=== PATIENT | male | born 1930 | race Caucasian/White ===

== ENCOUNTER 2017-10-14 11:20 | Inpatient (IN) | payer OTHER ==
[~2017-10-14] VITALS: Ht 167.6 cm; Wt 96.2 kg
--- NOTE | 2017-10-14 11:43 | ED GENERAL ADULT ---
History of Present Illness General Chief Complaint: Chest Pain Stated Complaint: SOB; CHEST PRESSURE Source: patient Exam Limitations: no limitations Allergies Coded Allergies: No Known Allergies (10/14/17) Reconcile Medications Aspirin (Ecotrin*) 81 MG TABLET.DR 1 TAB PO PRN HEART/BLOOD (Reported) Ezetimibe (Zetia) 10 MG TABLET 1 TAB PO DAILY CHOLESTEROL (Reported) Lisinopril 10 MG TABLET 1 TAB PO DAILY BP (Reported) Multivitamin (Daily Value) 1 EACH TABLET 1 TAB PO PRN SUPPLEMENT (Reported) Tamsulosin HCl 0.4 MG CAP.ER.24H 1 CAP PO QHS PROSTATE (Reported) Triage Note: 87M REPORTS HACKING COUGH SINCE JULY, 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 REPORTS SOB AND PEREA, O2 SAT 91 AFTER AMBULATION AND 94% AT REST ON ROOM AIR. REPORTS DISCOMFORT WITH COUGHING BUT NO CP/PALPITATIONS AT BASELINE. AFEBRILE. DENIES BLE EDEMA/SWELLING. Triage Nurses Notes Reviewed? yes Onset: Gradual Duration: 3 months Timing: no prior history Injury Environment: home Severity: moderate Severity Numbers: 6 No Modifying Factors: none HPI: Patient is an 87-year-old male with history of hypertension, TIA remotely presenting to the emergency Department chief complaint of increasing shortness of breath with exertion spangle half in the past 3 months. Patient also reporting that he has had dry cough for the past 2-3 months. Patient reports a sinus primary care physician and they ordered a chest x-ray which was negative. 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 Denies any current chest pain but does report that sometimes he gets pressure over his chest. Exertion increases shortness of breath, patient needs to stop and rest for several minutes to help with symptoms. No sick contacts or recent travel. No fevers or chills. Patient does take lisinopril daily for blood pressure. He was never told that this may cause cough. (Evens RICHARDSON,Viola) Vital Signs & Intake/Output Vital Signs & Intake/Output Vital Signs Date Time Temp Pulse Resp B/P B/P Pulse O2 O2 Flow FiO2 Mean Ox Delivery Rate 10/14 1458 98.1 82 22 145/87 96 Room Air 10/14 1436 98.1 85 22 163/83 94 Nasal 2.0L Cannula 10/14 1314 98.0 76 18 155/76 92 Room Air 10/14 1152 96 Room Air 10/14 1127 98.0 102 22 160/92 94 Room Air (Destiny GIBBS,Harpreet Warren) Past History Travel History Traveled to [place] past 21 day No Medical History Any Pertinent Medical History? see below for history Neurological: TIA EENT: NONE Cardiovascular: CAROTID ARTERY OPERATION Respiratory: NONE Gastrointestinal: NONE Hepatic: NONE Renal: NONE Musculoskeletal: NONE Psychiatric: anxiety Endocrine: NONE Surgical History Surgical History: non-contributory Psychosocial History What is your primary language Ecuadorean Tobacco Use: Never used Family History Hx Contributory? No (Viola Rodas) Review of Systems Review of Systems Constitutional: Reports: no symptoms. Comments Review of systems: See HPI, All other systems negative. Constitutional, no chills fever or weight loss HEENT: No visual changes no sore throat no congestion Cardiovascular: No palpitation , orthopnea or ankle swelling Skin, no jaundice no rashes Respiratory: No sputum or hemoptysis GI: No nausea no vomiting : No dysuria No hematuria Muscle skeletal: no back pain, no neck pain, Neurologic: No numbness no confusion no headache Psych: No stress anxiety or depression,. Heme/endocrine: No bruising no bleeding no polyuria or polydipsia Immunology: No splenectomy or history of AIDS (Viola Rodas) Physical Exam Physical Exam General Appearance: well developed/nourished, alert, awake, mild distress Comments: Well-developed well-nourished person in mild respiratory distress HEENT: Pupils equally round and reactive to light and accommodation. Nose is atraumatic. External auditory canal and Tympanic membranes clear. Pharynx normal. No swelling or edema. Neck: Normal inspection Back: Nontender Cardiovascular: Regular rate and rhythms no murmurs rubs or gallops, normal JVP Respiratory: Chest nontender. Mild to moderate respiratory distress.breath sounds slightly diminished to auscultation bilaterally Abdomen: Soft, nontender nondistended, no appreciable organomegaly. Normal bowel sounds. No ascites, no rebound or guarding. Small reducible umbilical hernia present. Rectal: Patient refused guaiac exam. Extremity: No edema, no calf tenderness to palpation, normal and equal pulses. Neuro: Alert oriented x3 Skin: No appreciable rash on exposed skin, skin is warm and dry. Psych: Mood and affect is normal, memory and judgment is normal. Core Measures ACS in differential dx? Yes CVA/TIA Diagnosis: No (Viola Rodas) Core Measures Sepsis Present: No Sepsis Focused Exam Completed? No (Destiny GIBBS,Harpreet Warren) Progress Differential Diagnoses I considered the following diagnoses in my evaluation of the patient: ACS, pulmonary embolus, medication reaction, CHF, asthma exacerbation, bronchitis Diagnostic Imaging: Viewed by Me: Radiology Read, CT Scan. Discussed w/RAD: Radiology Read, CT Scan. Initial ED EKG: NSR (sinus rhythm 96 bpm) Comments: 10/14/2017 3:10:[address] Robison regarding patient's pulmonary embolism finding on CAT scan. We will start IV heparin. He'll consult on patient tomorrow. Patient to be admitted to telemetry. Since patient is stable and vitals are stable patient does not need ICU. We will continue trend labs, serial EKGs. Telemetry monitoring. (Viola Rodas) Plan of Care: Orders Procedure Date/time Status Regular Diet 10/14 D Active Patient Data 10/14 1505 Active Misc Message 10/14 1458 Active ED Holding Orders 10/14 1458 Active Admit to inpatient 10/14 1458 Active Vital Signs 10/14 1458 Active Code Status 10/14 1458 Active Telemetry/Flavor Maker 10/14 1142 Active TROPONIN LEVEL 10/14 1142 Complete PARTIAL THROMBOPLASTIN TIME 10/14 1142 Complete PROTHROMBIN TIME 10/14 1142 Complete LACTIC ACID 10/14 1142 Complete D-DIMER 10/14 1142 Complete COMPREHENSIVE METABOLIC PANEL 10/14 1142 Complete CBC WITHOUT DIFFERENTIAL 10/14 1142 Complete B-TYPE NATRIURETIC PEP (BNP) 10/14 1142 Complete EKG 10/14 1128 Active Current Medications Sig/Alfa Start time Last Medication Dose Stop Time Status Admin Heparin Sodium 25,000 UNIT Q24H 10/14 1500 AC (Porcine) 10/15 1459 (Heparin) Sodium Chloride 500 ML Laboratory Tests 10/14/17 1442: Lactic Acid Cancelled 10/14/17 1215: Anion Gap 11, Estimated GFR > 60, BUN/Creatinine Ratio 20.0, Glucose 85, Lactic Acid 1.5, Calcium 9.7, Total Bilirubin 0.6, AST 19, ALT 24, Alkaline Phosphatase 69, Troponin I 0.13 *H, Fgb-E-Loissbwidid Pept 277 H, Total Protein 6.8, Albumin 4.0, Globulin 2.8, Albumin/Globulin Ratio 1.4, PT 12.5, INR 1.15, APTT 36, D-Dimer High Sensitivty 886 H, CBC w Diff NO MAN DIFF REQ, RBC 4.83, MCV 89.9, MCH 29.7, MCHC 33.1, RDW 14.2, MPV 8.0, Gran % 70.3, Lymphocytes % 18.3 L , Monocytes % 8.3, Eosinophils % 2.7, Basophils % 0.4, Absolute Granulocytes 6.7 H, Absolute Lymphocytes 1.7, Absolute Monocytes 0.8 H, Absolute Eosinophils 0.3, Absolute Basophils 0 Patient resting comfortably, oxygen saturation remains between 93 and 96% on 2 L nasal cannula. Patient reports little relief after breathing treatment. Patient family informed of CT findings. It is explained that patient will need to be admitted to start anticoagulation. Discharged at this time is medically harmful. Patient compliant with the need for admission. (Viola Rodas) Comments: 10/14/2017 2:38:36 PM Viola and myself have updated [place] on his test results. 10/14/2017 2:50:59 PM I discussed this patient's case with Dr. Cruz feels the patient can be admitted to telemetry. We will notify Dr. Robison. (Destiny GIBBS,Harpreet Warren) Departure Departure Time of Disposition: 1510 Condition: Stable Departure Forms: Customer Survey General Discharge Information (Viola Rodas) Departure Disposition: STILL A PATIENT Clinical Impression Primary Impression: Bilateral pulmonary embolism Secondary Impressions: Elevated troponin Admission Note Spoke With: Yoni Cruz MD Documentation of Exam: Documentation of any treatments & extenuating circumstances including Concerns Regarding Discharge (functional status, medication knowledge or non-compliance, living conditions, etc.) that warrant an admission rather than observation: Patient presents for evaluation of shortness of breath over the past few months. Emergency department evaluation reveals bilateral pulmonary emboli and an elevated troponin level. This places the patient at very high risk of respiratory failure, cardiac failure, worsening hypoxia, chest pain and mortality. I do not feel he can safely be treated as an outpatient under the circumstances. He now requires hospitalization for anticoagulation, continuous cardiac monitoring, serial troponin determinations and cardiology consultation ( given the elevated troponin) and pulmonary consultation (given the pulmonary emboli). Vital signs including pulse oximetry should be monitored and patient's oxygen supplemented as needed. In addition the underlying cause for this patient's pulmonary emboli should be investigated including blood dyscrasia, autoimmune disease and occult malignancy. This patient will require a multiple day hospitalization. PA/REMOTE MEDICAL CODER Co-Sign Statement Statement: ED Attending supervision documentation- [X] I saw and evaluated the patient. I have also reviewed all the pertinent lab results and diagnostic results. I agree with the findings and the plan of care as documented in the PA's/REMOTE MEDICAL CODER's documentation. Patient presents for evaluation of persistent dyspnea over the past 3 or so months. Physical examination reveals clear lung sounds bilaterally [] I have reviewed the ED Record and agree with the PA's/REMOTE MEDICAL CODER's documentation. [] Additions or exceptions (if any) to the PAs/REMOTE MEDICAL CODER's note and plan are summarized below: [] (Destiny GIBBS,Harpreet Warren) Critical Care Note Critical Care Note Critical Care Time: 30-74 min (Harpreet Dixon MD)
--- NOTE | 2017-10-14 12:32 | RADIOLOGY REPORT ---
EXAMINATION: XR PORTABLE CHEST CLINICAL INFORMATION: 87-year-old man with shortness of breath. COMPARISON: None TECHNIQUE: Portable frontal view of the chest was obtained. FINDINGS: Lung volumes are somewhat low. No focal consolidation or overt edema is appreciated. Heart size is at the upper range of normal. There are no pleural effusions. IMPRESSION: No radiographic evidence of an acute cardiopulmonary process. Low lung volumes.
[2017-10-14 12:35] LABS: ABSOLUTE BASOPHIL COUNT 0 /CUMM (0.0-0.2); ABSOLUTE EOSINOPHIL COUNT 0.3 /CUMM (0.0-0.7); ABSOLUTE GRANULOCYTE CT 6.7 /CUMM (1.4-6.5); ABSOLUTE LYMPH COUNT 1.7 /CUMM (1.2-3.4); ABSOLUTE MONOCYTE COUNT 0.8 /CUMM (0.10-0.60); BASOPHIL % 0.4 % (0.0-2.0); EOSINOPHIL % 2.7 % (0-5); GRANULOCYTE % 70.3 % (42.2-75.2); HEMATOCRIT 43.5 % (42-52); MEAN CORPUSCULAR HGB 29.7 PG (27.0-31.0); MEAN CORPUSCULAR HGB CONC 33.1 G/DL (33.0-37.0); MEAN CORPUSCULAR VOLUME 89.9 FL (80.0-94.0); PLATELET COUNT 325 /CUMM (130-400); RBC DISTRIBUTION WIDTH 14.2 % (11.5-14.5); RED BLOOD CELL CT 4.83 /CUMM (4.70-6.10); WHITE BLOOD CELL COUNT 9.5 /CUMM (4.8-10.8)
[2017-10-14] MEDS ORDERED: ZETIA10 M1 PO (12:35)
[2017-10-14] MEDS ORDERED: ASPIRIN EC81 M1 PO (12:35)
[2017-10-14] MEDS ORDERED: LISINOPRIL10 M1 PO (12:36)
[2017-10-14] MEDS ORDERED: TAMSULOSIN HCL0.4 M1 PO (12:36)
[2017-10-14 12:38] LABS: PT 12.5 SEC (9.4-12.5); PTT 36 SEC (25-37)
[2017-10-14] MEDS ORDERED: DAILY VALUE1 EACH PO (12:39)
--- NOTE | 2017-10-14 15:01 | CT SCAN REPORT ---
EXAMINATION: CT ANGIOGRAM OF THE CHEST WITH AND WITHOUT CONTRAST (CT PULMONARY ANGIOGRAM FOR PE) CLINICAL INFORMATION: Shortness of breath. COMPARISON: Chest radiography earlier today. TECHNIQUE: Prior to contrast administration, noncontrast localization images were obtained. Subsequently, multidetector volumetric imaging was performed from the thoracic inlet to below the diaphragms following the administration of 95 mL Optiray 350 intravenous contrast. No contrast reaction reported. Sagittal, coronal, and MIP oblique sagittal reformatted images were obtained on the CT workstation, uploaded to PACS, and reviewed. Total exam dose-length product 496 mGy-cm. FINDINGS: QUALITY OF STUDY/CONTRAST BOLUS: Satisfactory. PULMONARY ARTERIES: There are bilateral pulmonary emboli involving each lobe (moderate clot burden). There is borderline ectasia of the main pulmonary artery. THORACIC AORTA: No aneurysm or dissection. Scattered atherosclerotic calcification. LUNG: There is mild patchy groundglass opacification in the right lung apex as well as the lingula. There are a few scattered subcentimeter pulmonary nodules measuring up to 0.8 x 0.5 x 0.3 cm in the right upper lobe, axial image 148/426 (series 2). PLEURA: No pleural effusion or pneumothorax. MEDIASTINUM: The trachea and central airways are patent. Normal heart size. Multifocal coronary artery calcification. No evidence of septal bowing or right heart strain. Subcentimeter mediastinal lymph nodes without bulky adenopathy. CHEST WALL/AXILLA: No axillary or internal mammary lymphadenopathy. OSSEOUS STRUCTURES: No acute or suspicious osseous abnormality. Mild degenerative changes of the spine. UPPER ABDOMEN: No acute intra-abdominal abnormalities. Partially visualized left renal cyst. Atrophic changes of the pancreas. IMPRESSION: 1. Diffuse bilateral pulmonary emboli (moderate clot burden). 2. A few nonspecific patchy groundglass opacities bilaterally. Subcentimeter pulmonary nodules measuring up to 0.5 cm. According to the UPDATED 2017 Fleischner Society recommendations, the advised follow-up imaging for solid nodules < 6 mm is: LOW RISK PATIENT: No routine follow-up. HIGH RISK PATIENT: Optional CT at 12 months. VTE: Positive. This critical result was discussed with Dr. Horner at 2:30 PM on 10/14/2017 and it was ascertained that the content and urgency of the report was understood at the time of direct communication.
--- NOTE | 2017-10-14 15:12 | History & Physical ---
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 at bedside. Patient reports he went to [employer] with his this morning and found himself SOB after attempting to walk through the parking lot to the car. Patient reports he has been short of breath since July but has been progressively getting worse but initially attributed it to cold weather. He reports he has a 2 story home and cannot go up a flight of steps without SOB. He is active around the house and perform his ADLs. His reports they walk around [facility] for exercise. He reports a poor water intake. He drinks 3 12-ounces of green tea amd/or ice tea a day. He also reports back in July when he was initially SOB it was accompanied by a hacking cough with yellowish sputum production. He had his influenza vaccination May 2017. He reports intermittent hemorrhoids and constipation. He had a colonoscopy 5 years ago that reported a few benign polyps. 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 He reports weight gain. He denies history of DVT/PE, smoking history, CP, palpitations, orthopnea, sputum production, nausea, vomiting, long distance travel, hematuria, hemoptysis, melena, hematochezia or urinary symptoms. He reports colon cancer in his mother, in her 80s. His PCP is Dr. Blair. Allergies/Medications Allergies: Coded Allergies: No Known Allergies (10/14/17) Home Med list Aspirin (Ecotrin*) 81 MG TABLET. 1 TAB PO PRN HEART/BLOOD (Reported) Ezetimibe (Zetia) 10 MG TABLET 1 TAB PO DAILY CHOLESTEROL (Reported) Lisinopril 10 MG TABLET 1 TAB PO DAILY BP (Reported) Multivitamin (Daily Value) 1 EACH TABLET 1 TAB PO PRN SUPPLEMENT (Reported) Tamsulosin HCl 0.4 MG CAP.ER.24H 1 CAP PO QHS PROSTATE (Reported) Past History Travel History Traveled to [place] past 21 day No Medical History Neurological: TIA EENT: NONE Cardiovascular: CAROTID ARTERY OPERATION Respiratory: NONE Gastrointestinal: NONE Hepatic: NONE Renal: NONE Musculoskeletal: NONE Psychiatric: anxiety Endocrine: NONE Surgical History Surgical History: non-contributory Review of Systems Review of Systems Constitutional: Reports: see HPI. Exam & Diagnostic Data Last 24 Hrs of Vital Signs/I&O Vital Signs Date Time Temp Pulse Resp B/P B/P Pulse O2 O2 Flow FiO2 Mean Ox Delivery Rate 10/14 1458 98.1 82 22 145/87 96 Room Air 10/14 1436 98.1 85 22 163/83 94 Nasal 2.0L Cannula 10/14 1314 98.0 76 18 155/76 92 Room Air 10/14 1152 96 Room Air 10/14 1127 98.0 102 22 160/92 94 Room Air Intake & Output 10/14 1600 10/14 0800 10/14 0000 Intake Total Output Total Balance Patient 210 lb Weight Physical Exam General Appearance Alert, Oriented X3, Cooperative, on 2.5LNC Cardiovascular Regular Rate, Normal S1, Normal S2, No Murmurs Lungs Clear to Auscultation, Normal Air Movement Abdomen Normal Bowel Sounds, Soft, No Tenderness Extremities No Edema, Normal Pulses, No Tenderness/Swelling Rectal Guiac Negative Last 24 Hrs of Labs/Shawn: Laboratory Tests 10/14/17 1442: Lactic Acid Cancelled 10/14/17 1215: Anion Gap 11, Estimated GFR > 60, BUN/Creatinine Ratio 20.0, Glucose 85, Lactic Acid 1.5, Calcium 9.7, Total Bilirubin 0.6, AST 19, ALT 24, Alkaline Phosphatase 69, Troponin I 0.13 *H, Jgr-H-Spollrbeety Pept 277 H, Total Protein 6.8, Albumin 4.0, Globulin 2.8, Albumin/Globulin Ratio 1.4, PT 12.5, INR 1.15, APTT 36, D-Dimer High Sensitivty 886 H, CBC w Diff NO MAN DIFF REQ, RBC 4.83, MCV 89.9, MCH 29.7, MCHC 33.1, RDW 14.2, MPV 8.0, Gran % 70.3, Lymphocytes % 18.3 L , Monocytes % 8.3, Eosinophils % 2.7, Basophils % 0.4, Absolute Granulocytes 6.7 H, Absolute Lymphocytes 1.7, Absolute Monocytes 0.8 H, Absolute Eosinophils 0.3, Absolute Basophils 0 Diagnostic Data EKG Results NS, Q3T3 HR 96 QTc 430 CXR Results FINDINGS: Lung volumes are somewhat low. No focal consolidation or overt edema is appreciated. Heart size is at the upper range of normal. There are no pleural effusions. IMPRESSION: No radiographic evidence of an acute cardiopulmonary process. Low lung volumes. Other Results CTA CHEST-PULMONARY EMBOLISM IMPRESSION: 1. Diffuse bilateral pulmonary emboli (moderate clot burden). 2. A few nonspecific patchy groundglass opacities bilaterally. Subcentimeter pulmonary nodules measuring up to 0.5 cm. According to the UPDATED 2017 Fleischner Society recommendations, the advised follow-up imaging for solid nodules < 6 mm is: LOW RISK PATIENT: No routine follow-up. HIGH RISK PATIENT: Optional CT at 12 months. VTE: Positive. Assessment/Plan Assessment: Mr. Vick is a 87 yo m with a PMH hypertension, HLD, TIA, anxiety who presents to the ED with progressively worsened shortness of breath Acute pulmonary emboli CTA showed diffuse bilateral pulmonary emboli. D-dimer 886. Troponin is mildly elevated 0.13. It is unclear why he developed VTE. His PESI -Class IV, High Risk: 4.0-11.4% with a 30-day mortality. His recent colonoscopy was benign, no smoking history, no recent surgeries, no immobility. * Start IV heparin * Cardiology consult-[place] * Serial troponins and ECG to r/o ACS * ECHO to r/o SHD and/or RWMA * TSH/free T4 * Abdominal US to investigate for malignancy * Continue home medications: ASA, Ezetimibe, lisinopril, tamsulosin Elevated troponins 2/2 Type II myocardial infarction DVT prophylaxis: IV heparin Code: FULL As Ranked By This Provider Problem List: 1. Bilateral pulmonary embolism 2. Elevated troponin Core Measures/Misc (04/29) Acute Coronary Syndrome ACS Diagnosis: No Congestive Heart Failure Congestive Heart Failure Diagnosis No Cerebrovascular Accident CVA/TIA Diagnosis: No VTE (View Protocol) VTE Risk Factors Age>40 No Mechanical VTE Prophylaxis d/t N/A MechProphylax Ordered No VTE Pharm Prophylaxis d/t NA PharmProphylax ordered Sepsis (View protocol) Sepsis Present: No Chani Medina MD 10/14/17 1526: Resident Review Statement Resident Statement: examined this patient, discussed with internet ecommerce specialist, agreed with internet ecommerce specialist, discussed with family Other Findings: Patient is an 87-year-old male presented with chief complaints of sudden onset of shortness of breath. Past medical history-hypertension, hyperlipidemia, TIA(1998), noncompliant with aspirin, history of left-sided carotid endarterectomy(2000), history of spinal stenosis status post surgery(2012), anxiety, carpal tunnel syndrome, left-sided intention tremor. According to the patient he was having gradually progressive shortness of breath especially on exertion since last 3 months. It was associated with dry cough, and weight gain. he denies any fever, chills, nausea, vomiting. He had episodes of sudden onset of catching his breath after he goes up and down the stairs.It lasted for only a couple of minutes and subsided by itself.He did not try any medication for it.In the morning today when he went to the [employer], he had an episode of sudden onset of shortness of breath, which lasted for a couple of minutes. The nurses over there checked him and advised [facility]. He is moderately active at home, can do his daily activities by himself, denies for smoking, orthopnea, PND, blood in the stool, bleeding from any site of the body, sputum and family history of clots. He had family history of colon cancer in the mother, and that is why he underwent through screening colonoscopy and multiple polyps were removed but denies for any reported malignancy. His last colonoscopy was 5 years ago. 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 Underwent regular colonoscopy last one was done 5 years ago, and couple of benign polyps were removed. ED course he was having SPO2 91% after ambulation and 94% on room air at rest. Vital signs -temperature 98.0, pulse 102, respiratory rate 22, blood pressure 160/92, SPO2 94% on room air, nonproductive liters of nasal cannula with SPO2 of 94%. Blood workup -WBC 9.5, hemoglobin 14.4, hematocrit 43.5, platelet count 325, sodium 142, potassium 5.1, chloride 108, anion gap 11, BUN 20, creatinine 1.0, glucose 85, lactic acid 1.5, calcium 9.7, total bilirubin 0.6, AST 19, ALT 24, alkaline phosphatase 69, troponins are 0.13, proBNP 277, albumin 4.0, PT/INR 12 point 5/1.15, d-dimer 886, EKG - NSR, HR -96,Qs in lead III Chest x-ray -No radiographic evidence of an acute cardiopulmonary process. Low lung volumes. CTA - 1. Diffuse bilateral pulmonary emboli (moderate clot burden). 2. A few nonspecific patchy groundglass opacities bilaterally. Subcentimeter pulmonary nodules measuring up to 0.5 cm. According to the UPDATED 2017 Fleischner Society recommendations, the advised follow-up imaging for solid nodules < 6 mm is: LOW RISK PATIENT: No routine follow-up. HIGH RISK PATIENT: Optional CT at 12 months. He was given oxygen inhalation, nebulization with DuoNeb, started on IV heparin drip after discussing with energy efficient site manager. Assessment and plan - Patient is a 87-year-old male with coronary risk factors including hypertension, hyperlipidemia history of TIA presented with chief complaints of gradually progressive shortness of breath. On examination chest was clear, no any evidence of bilateral lower extremity edema. chest x-ray did not show any evidence of, lung involvement. Blood workup did showed positive d-dimer 886 and positive troponins.CTA chest did show pulmonary embolism. We will admit the patient to telemetry floor and treat for pulmonary embolism.His stool for occult blood is negative.We will continue heparin drip.We will obtain cardiology consult and do echo to see any evidence of right heart strain.He may need repeat colonoscopy, a CT abdomen and pelvis to rule out any evidence of cancer. Bilateral PE - PESI -Class IV, High Risk: 4.0-11.4% 30-day mortality in this group. * We will admit the patient to the telemetry floor. * Serial troponins and EKG * We will obtain echocardiogram to know the right heart strain * We'll continue heparin drip. * We will continue tablet aspirin and statins * We will follow-up the lipid profile * We will obtain cardiology consult. * Evaluate him for malignancy as an outpatient * trc/neb Chronic medical condition, hypertension, hyperlipidemia. * We'll continue his antihypertensive and antihyperlipidemic medication as before. CODE STATUS-full code. DVT prophylaxis-heparin drip. Diet -heart healthy diet Anthony GIBBS,Yoni 10/14/17 1926: Attending MD Review Statement Attending Statement Attending MD Statement: examined this patient, discuss w/resident/PA/DISTRIBUTION SPEC, agreed w/resident/PA/DISTRIBUTION SPEC, reviewed EMR data (avail) Attending Assessment/Plan: 87M PMH HTN, HLD, TIA (1998), left CEA (2000), chronic left intention tremor with several week history of fatigue and mild shortness of breath, presented today with acutely worsening symptoms, dyspneic at rest, subjective fever, found to have elevated d-dimer, with CTA showing bilateral acute pulmonary embolism. 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 EKG NSR no acute, troponin 0.44. 1. Acute bilateral pulmonary embolism 2. Type 2 myocardial infarction Plan - Admit to telemetry - Serial troponin and EKG - Echocardiogram - Cardiology consult - Heparin drip - Continue home medications
[2017-10-14 17:16] VITALS: BP 140/80
--- NOTE | 2017-10-14 19:29 | Admission Certification ---
Admission Certification Certification Statement - As attending physician, I certify that at the time of - admission, based on clinical presentation, severity of - symptoms, need for further diagnostic testing and - therapeutic interventions, and risk of adverse outcomes - without in-hospital treatment, in my clinical assessment, - this patient requires an acute hospital stay for a minimum - of two nights or longer. I have also considered psychsocial - factors such as support system, advanced age, financial - issues, cognitive issues, and failed out-patient treatments, - past re-admission history, safety of patient, and lack of - compliance as applicable. Specific rationale supporting this admission is: bilateral acute pulmonary embolism with elevated troponin
[2017-10-14 21:58] VITALS: BP 144/86
[2017-10-14 22:28] LABS: PTT > 120 SEC (25-37)
[2017-10-15 06:11] LABS: PTT 59 SEC (25-37)
[2017-10-15 06:30] VITALS: BP 136/74
--- NOTE | 2017-10-15 07:31 | PN- Housestaff ---
Dara Delgado 10/15/17 0731: Subjective Follow-up For: Bilateral PE Tele-Events Since Last Visit: NS 20-27 Subjective: No complaints or acute events overnight Review of Systems Constitutional: Reports: see HPI. Objective Last 24 Hrs of Vital Signs/I&O Vital Signs Date Time Temp Pulse Resp B/P B/P Pulse O2 O2 Flow FiO2 Mean Ox Delivery Rate 10/15 0928 93 104/60 10/15 0928 93 104/60 10/15 0800 Nasal 2.0L Cannula 10/15 0630 98.5 62 20 136/74 95 03/04 2219 Nasal 2.0L Cannula 10/14 2205 Nasal 2.0L Cannula 10/14 2158 97.9 74 22 144/86 92 / 2157 77 144/86 / 1716 97.7 86 24 140/80 92 / 1700 93 Nasal 2.0L Cannula 10/14 1631 82 145/87 / 1458 98.1 82 22 145/87 96 Room Air 10/14 1436 98.1 85 22 163/83 94 Nasal 2.0L Cannula 10/14 1410 95 Nasal 2.5L Cannula Intake & Output 10/15 1600 10/15 0800 03/ 0000 Intake Total 130 Output Total Balance 130 Intake, IV 130 Number 1 Bowel Movements Patient 211 lb Weight Weight Bed scale Measurement Method Physical Exam General Appearance: Alert, Oriented X3, Cooperative, on 2LNC Cardiovascular: Regular Rate, Normal S1, Normal S2, No Murmurs Lungs: Clear to Auscultation, Normal Air Movement Abdomen: Normal Bowel Sounds, Soft, No Tenderness, large abdominal girth Extremities: No Edema Current Medications: Current Medications Sig/Alfa Start time Last Medication Dose Route Stop Time Status Admin Albuterol Sulfate 3 ML ONCE ONE 10/14 1345 DC 10/14 INH 10/14 1346 1410 Aspirin 0 .STK-MED ONE 10/14 1632 DC PO Aspirin Buffered 81 MG DAILY 10/14 1609 AC 10/15 PO 0928 Ezetimibe 10 MG 2200 10/15 2200 AC PO Ezetimibe 10 MG DAILY 10/14 1609 DC / PO 2155 Heparin Sodium 3,828 UNIT ONCE ONE 10/15 0740 DC 10/15 (Porcine) IV 10/15 0741 0812 Heparin Sodium 0 .STK-MED ONE 10/14 1505 DC (Porcine) .ROUTE Heparin Sodium 25,000 UNIT Q24H 10/14 1500 AC 10/14 (Porcine) IV 10/15 1459 1512 Sodium Chloride 500 ML Heparin Sodium 5,000 UNIT ONCE ONE 10/14 1500 DC 10/14 (Porcine) IV 10/14 1501 1512 Ipratropium [place] 2.5 ML ONCE ONE 10/14 1345 DC / INH 10/14 1346 1410 Lisinopril 0 .STK-MED ONE 10/14 1632 DC PO Lisinopril 10 MG DAILY 10/14 1609 AC 10/15 PO 0928 Polyethylene Glycol 17 GM DAILY 10/14 1609 AC PO Tamsulosin HCl 0.4 MG AT BEDTIME 10/14 2200 AC 10/14 PO 2157 Last 24 Hrs of Lab/Shawn Results Last 24 Hrs of Labs/Mics: Laboratory Tests 10/15/17 1315: APTT Pending 10/15/17 0811: Triglycerides 133, Cholesterol 154, LDL Cholesterol, Calc 88, HDL Cholesterol 40 , Cholesterol/HDL Ratio 4, TSH Pending, Free T4 Pending 10/15/17 0430: APTT 59 H 10/14/17 2050: Troponin I 0.45 *H, APTT > 120 *H 10/14/17 1635: Troponin I 0.46 *H 10/14/17 1442: Lactic Acid Cancelled Assessment/Plan Assessment: Mr. Vick is a 87 yo m with a PMH hypertension, HLD, TIA, anxiety who presents to the ED with progressively worsened shortness of breath Acute pulmonary emboli CTA showed diffuse bilateral pulmonary emboli. D-dimer 886. Troponin is mildly elevated 0.13. It is unclear why he developed VTE. His PESI -Class IV, High Risk: 4.0-11.4% with a 30-day mortality. His recent colonoscopy was benign, no smoking history, no recent surgeries, no immobility. * Continue IV heparin * Start Apixaban 10 mg BID for 7 days then 5 mg thereafter * Start low dose Metoprolol BID * Cardiology recommendations appreciated * Serial troponins and ECG to r/o ACS negative * ECHO to r/o SHD and/or RWMA pending * TSH/free T4 pending * lipid panel nl * CT ABD/Pel to investigate for malignancy * Continue home medications: ASA, Ezetimibe, lisinopril, tamsulosin * PT/OT Elevated troponins 2/2 Type II myocardial infarction DVT prophylaxis: IV heparin Code: FULL Problem List: 1. Elevated troponin 2. Bilateral pulmonary embolism Pain Ratin Pain Location: NA Pain Goal: Remain pain free Pain Plan: NA Tomorrow's Labs & Rationales: PTT for heparin Eileen Fallon 10/15/17 1536: Attending MD Review Statement Attending Statement Attending MD Statement: examined this patient, discuss w/resident/PA/ELECTROLYTIC DE SCALER, agreed w/resident/PA/ELECTROLYTIC DE SCALER, reviewed EMR data (avail), discussed with nursing, discussed with case mgmt Attending Assessment/Plan: will f/u on echo results pt had some wt loss over the last few months of about 10-15lbs. will get CT abdomen and pelvis. f/u on results.
[2017-10-15 09:28] VITALS: BP 104/60
--- NOTE | 2017-10-15 12:52 | Cons- Cardiology ---
General Information and HPI Consulting Request Date of Consult: 10/15/17 Requested By: Eileen Fallon MD Reason for Consult: Pulmonary embolism, elevated troponin isoenzyme Source of Information: patient, old records Exam Limitations: no limitations History of Present Illness: The patient is an 87-year-old gentleman with a past medical history of attention , hyperlipidemia as well as a TIA with vascular disease and status post left carotid endarterectomy. He presented to our emergency room with symptoms of increasing dyspnea. The patient states he had acute increasing dyspnea, onset approximately 2 days prior to arrival. Symptoms however acutely worsened on the day of arrival, and he was unable to ambulate on flat ground significantly. He states he has otherwise been able to perform approximately 4 METs of physical activity without difficulty until approximately 2 months ago. On arrival, the patient was noted to be hypoxic as well as have an elevated d- dimer. Subsequently, a chest CTA demonstrated bilateral filling defects, consistent with pulmonary emboli with a moderate overall burden. The patient as well had elevated troponin isoenzymes noted albeit, of a low peak (0.46). Prior to the onset of dyspnea, the patient otherwise denied symptoms of chest pain with physical activity. Allergies/Medications Allergies: Coded Allergies: No Known Allergies (10/14/17) Home Med List: Aspirin (Ecotrin*) 81 MG TABLET.DR 1 TAB PO PRN HEART/BLOOD (Reported) Ezetimibe (Zetia) 10 MG TABLET 1 TAB PO DAILY CHOLESTEROL (Reported) Lisinopril 10 MG TABLET 1 TAB PO DAILY BP (Reported) Multivitamin (Daily Value) 1 EACH TABLET 1 TAB PO PRN SUPPLEMENT (Reported) Tamsulosin HCl 0.4 MG CAP.ER.24H 1 CAP PO QHS PROSTATE (Reported) Current Medications: Current Medications Sig/Alfa Start time Last Medication Dose Route Stop Time Status Admin Albuterol Sulfate 3 ML ONCE ONE 10/14 1345 DC 10/14 INH 10/14 1346 1410 Aspirin 0 .STK-MED ONE 10/14 1632 DC PO Aspirin Buffered 81 MG DAILY 10/14 1609 AC 10/15 PO 0928 Ezetimibe 10 MG 2200 10/15 2200 AC PO Ezetimibe 10 MG DAILY 10/14 1609 DC 10/14 PO 2155 Heparin Sodium 3,828 UNIT ONCE ONE 10/15 0740 DC 10/15 (Porcine) IV 10/15 0741 0812 Heparin Sodium 0 .STK-MED ONE 10/14 1505 DC (Porcine) .ROUTE Heparin Sodium 25,000 UNIT Q24H 10/14 1500 AC 10/14 (Porcine) IV 10/15 1459 1512 Sodium Chloride 500 ML Heparin Sodium 5,000 UNIT ONCE ONE 10/14 1500 DC 10/14 (Porcine) IV 10/14 1501 1512 Ipratropium [place] 2.5 ML ONCE ONE 10/14 1345 DC / INH 10/14 1346 1410 Lisinopril 0 .STK-MED ONE 10/14 1632 DC PO Lisinopril 10 MG DAILY 10/14 1609 AC 10/15 PO 0928 Polyethylene Glycol 17 GM DAILY 10/14 1609 AC PO Tamsulosin HCl 0.4 MG AT BEDTIME 10/14 2200 AC 10/14 PO 2157 Review of Systems Review of Systems: The review of systems is negative for chest pains, palpitations nor lightheadedness. The remainder of the 14 point review of systems is noncontributory with the exception of above. Past History Travel History Traveled to [place] past 21 day No Medical History Blood Transfusion Hx: No Neurological: TIA EENT: NONE Cardiovascular: CAROTID ARTERY OPERATION Respiratory: NONE Gastrointestinal: NONE Hepatic: NONE Renal: NONE Musculoskeletal: NONE Psychiatric: anxiety Endocrine: NONE Blood Disorders: NONE CLINICIAN ONCOLOGY/Reproductive: NONE Surgical History Surgical History: non-contributory Psychosocial History Where Do You Live? Home Smoking Status: Never Smoked Exam & Diagnostic Data Vital Signs and I&O Vital Signs Date Time Temp Pulse Resp B/P B/P Pulse O2 O2 Flow FiO2 Mean Ox Delivery Rate 10/16 927 93 104/60 10/15 09 93 104/60 10/15 0800 Nasal 2.0L Cannula 10/15 06 98.5 62 20 136/74 95 / 2219 Nasal 2.0L Cannula 10/14 2204 Nasal 2.0L Cannula 10/14 2157 97.9 74 22 144/86 92 10/14 2157 77 144/86 10/14 1716 97.7 86 24 140/80 92 10/14 1700 93 Nasal 2.0L Cannula 10/14 1631 82 145/87 10/14 1458 98.1 82 22 145/87 96 Room Air 10/14 1436 98.1 85 22 163/83 94 Nasal 2.0L Cannula 10/14 1410 95 Nasal 2.5L Cannula 10/14 1314 98.0 76 18 155/76 92 Room Air Intake & Output 10/15 1600 10/15 0800 10/15 0000 10/14 1600 10/14 0800 10/14 0000 Intake Total 130 Output Total Balance 130 Intake, IV 130 Number 1 Bowel Movements Patient 211 lb 210 lb Weight Weight Bed scale Measurement Method Physical Exam: General: Nontoxic, no apparent distress. HEENT: Sclera and conjunctiva within normal limits, without xanthelasmas. Neck: Carotids 2+ without bruits. Respiratory: Clear to auscultation, air movement is good, without accessory respiratory muscle use. Heart: Regular rate and rhythm, without murmurs, without JVD. Abdomen: Soft, nontender, no masses, normoactive bowel sounds. Extremities: Without clubbing, cyanosis, without edema. Neuro: Nonfocal exam, strength, 5 out of 5 Skin: Within normal limits without lesions. Psych: Mood and affect: Normal Assessment/Plan Assessment/Plan 87-year-old gentleman with a past medical history of attention, hyperlipidemia as well as a TIA with vascular disease and status post left carotid endarterectomy. He presented to our emergency room with symptoms of increasing dyspnea. He was subsequently found to have bilateral pulmonary emboli, as well as elevated troponin isoenzymes. Bilateral pulmonary emboli: The patient has been anticoagulated. At this time, I would initiate treatment with a direct oral anticoagulant (patient does not wish warfarin). A further workup of the source as well as a hypercoagulable state will continue. Elevated troponin isoenzyme: Most likely secondary to his acute pulmonary embolism. An echocardiogram will be obtained to evaluate RV function as well as LV function. Obtain an overall conservative approach to management. Consideration for outpatient stress testing to evaluate an overall burden of ischemia will be given. The patient has known peripheral vascular disease and is therefore a cardiac risk equivalents. Aspirin should be maintained. A statin regimen should as well be initiated as well as a beta deshaun. Thank you for allowing us to participate in the care of your patient. Please do not hesitate to contact us further with any questions. Sincerely, Justice Donaldson MD [facility] Consult Acknowledgment - Thank you for your consult request.
[2017-10-15 14:38] VITALS: BP 96/50
[2017-10-15 14:40] LABS: PTT > 120 SEC (25-37)
--- NOTE | 2017-10-15 18:00 | CT SCAN REPORT ---
EXAMINATION: CT ABDOMEN AND PELVIS WITHOUT CONTRAST CLINICAL INFORMATION: Known pulmonary embolism. Shortness of breath. Evaluate cause. Evaluate for malignancy in abdomen. COMPARISON: CTA of the chest dated 10/14/2017. TECHNIQUE: Multidetector volumetric imaging was performed from the superior aspect of the liver through the pubic symphysis. Sagittal and coronal reformatted images were obtained on the technologist workstation. DLP: 786.64 mGy-cm. FINDINGS: LUNG BASES: Severe three-vessel coronary artery calcifications are seen. Subtle nodular densities are seen in the right upper lobe (series 2, image 1 and 2), incompletely included. Mild dependent reticular nodular opacities are noted in both lung bases, most likely related to atelectasis or scarring. No pleural effusion is noted. LIVER, GALLBLADDER, AND BILIARY TREE: The liver is normal in size, shape, and attenuation. No focal hepatic lesion on noncontrast imaging. No biliary ductal dilatation is present. The gallbladder is unremarkable with no evidence of radiopaque gallstones, gallbladder wall thickening, or obvious pericholecystic inflammatory changes. PANCREAS: The pancreas is nearly completely replaced by fatty tissue. No focal pancreatic mass, ductal dilatation or peripancreatic collection seen. SPLEEN, ADRENAL GLANDS: Unremarkable on noncontrast imaging. KIDNEYS AND URETERS: There is a 2.8 cm diameter low-attenuation mass in the lower pole of the right kidney (series 2, image 39), consistent with a small cyst. Additional partially exophytic 2.2 x 2.2 cm diameter upper pole left renal cyst is seen (series 2, image 34). Small parapelvic left renal cysts are also noted. There is excretion of contrast seen in the collecting system of both kidneys. No hydronephrosis is noted. The ureters bilaterally are decompressed and unremarkable. BLADDER/PELVIC VISCERA: Bladder is opacified with contrast from prior CTA and appears unremarkable except for prominent impression upon the bladder base by an enlarged heterogeneous prostate gland which measures 7.7 x 4.7 x 6.0 cm. Coarse calcifications in the prostate gland are seen. Seminal vesicles bilaterally are symmetric and unremarkable. GASTROINTESTINAL TRACT: The small and large bowel are unremarkable. The appendix is unremarkable. ABDOMINAL WALL: There is a moderate fat containing inguinal hernia. There is some presumed debris or dense calcification within the superficial skin of the umbilicus. LYMPH NODES, VASCULAR: Dense atherosclerotic calcifications of the aorta and several branch vessels, including the origins of the celiac axis, SMA, both renal arteries and FAY noted. OSSEOUS STRUCTURES: Diffuse osteopenia, advanced degenerative disc disease and facet arthropathy throughout the lumbar spine, and posterior spinous process hardware at L4-L5 noted. Moderate degenerative disc disease and spondylosis in lower thoracic spine noted. No suspicious bone findings. IMPRESSION: 1. On noncontrast study, no focal intra-abdominal or pelvic process is seen to suspect an underlying malignancy. No adenopathy is noted and no free fluid is seen. 2. Incidental findings include a markedly fatty replaced pancreas, bilateral renal cysts, an enlarged heterogeneous prostate gland, dense atherosclerotic vascular calcifications, including severe three-vessel coronary artery calcifications, fat-containing umbilical hernia, and incompletely included right upper lobe nodules (see recent CTA chest report).
--- NOTE | 2017-10-15 20:25 | ECHOCARDIOGRAM REPORT ---
ARACELY IBANEZ Age: 87 : 1930 Gender: M Exam Date: 10/15/2017 16:46 Exam Location: [address] Ht (in): 66 Wt (lb): 211 BSA: 2.15 BP: 4 Ordering Physician: Winter Medina MD Referring Physician: Justice Donaldson M.D. Technologist: Roxanna Chavez [facility] Room Number: 180-01 Indications: ACUTE PULMONARY EMBOLISM Rhythm: Sinus Technical Quality: fair FINDINGS Left Ventricle Normal size left ventricle. Left ventricular wall thickness moderately increased. Normal left ventricular ejection fraction estimated at 60-65%. Abnormal relaxation filling pattern of the left ventricle for age (stage 1 diastolic dysfunction). Right Ventricle Right ventricle at upper limits of normal. Right Atrium Normal right atrial size. Left Atrium Mild left atrial dilatation. Mitral Valve Mild mitral annular calcification. Mild mitral regurgitation. Aortic Valve Diffuse thickening (sclerosis) of the aortic valve cusps without reduced excursion. Tricuspid Valve Tricuspid valve is normal in structure and function. Moderate tricuspid regurgitation. Right ventricular systolic pressure estimated to be elevated at 65 mmHg. Pulmonic Valve Pulmonic valve not well visualized, grossly normal. Pericardium No pericardial effusion. Great Vessels Normal size aortic root. CONCLUSIONS Normal left ventricular systolic function with moderate concentric hypertrophy. Severe Pulmonary hypertension. Borderline right ventricular enlargement. Yariel Pinto M.D. (Electronically Signed) Final Date: 15 October 2017 20:24 MEASUREMENTS (Male / Female) Normal Values 2D ECHO LV Diastolic Diameter PLAX 3.6 cm 4.2 - 5.9 / 3.9 - 5.3 cm LV Systolic Diameter PLAX 2.0 cm 2.1 - 4.0 cm LV Fractional Shortening PLAX 44.4 % 25 - 46 % LV Ejection Fraction 2D Teich 76.6 % IVS Diastolic Thickness 1.6 cm LVPW Diastolic Thickness 1.4 cm LV Relative Wall Thickness 0.8 RV Internal Dim ED PLAX 3.6 cm 1.9 - 3.8 cm LVOT Diameter 2.2 cm Aortic Root Diameter 3.4 cm LA Systolic Diameter LX 4.6 cm 3.0 - 4.0 / 2.7 - 3.8 cm LA Volume 67.0 cm 18 - 58 / 22 - 52 cm Ascending Aorta Diameter 3.1 cm DOPPLER AV Peak Velocity 143.0 cm/s AV Peak Gradient 8.2 mmHg AV Mean Velocity 106.0 cm/s AV Mean Gradient 5.0 mmHg AV Velocity Time Integral 28.0 cm LVOT Peak Velocity 108.0 cm/s LVOT Peak Gradient 4.7 mmHg LVOT Mean Velocity 75.3 cm/s LVOT Mean Gradient 3.0 mmHg LVOT Velocity Time Integral 24.8 cm LVOT Stroke Volume 94.3 cm AV Area Cont Eq vti 3.4 cm AV Area Cont Eq pk 2.9 cm MV Peak Velocity 106.0 cm/s MV Peak Gradient 4.5 mmHg MV Mean Velocity 47.9 cm/s MV Mean Gradient 1.0 mmHg Mitral E Point Velocity 75.5 cm/s Mitral A Point Velocity 109.0 cm/s Mitral E to A Ratio 0.7 MV PHT Velocity 68.3 cm/s MV Deceleration [place] 276.0 cm/s MV Pressure Half Time 74.2 ms MV Area PHT 3.0 cm MV Deceleration Time 352.0 ms TR Peak Velocity 389.0 cm/s TR Peak Gradient 60.5 mmHg Right Atrial Pressure 5.0 mmHg Pulmonary Artery Systolic Pressu 65.5 mmHg Right Ventricular Systolic Press 65.5 mmHg PV Peak Velocity 94.6 cm/s PV Peak Gradient 3.6 mmHg PV Mean Velocity 62.0 cm/s PV Mean Gradient 2.0 mmHg PV Velocity Time Integral 16.1 cm LV E' Lateral Velocity 7.3 cm/s Mitral E to LV E' Lateral Ratio 10.3 LV E' Septal Velocity 5.7 cm/s Mitral E to LV E' Septal Ratio 13.4
[2017-10-15 22:00] VITALS: BP 126/62
[2017-10-16 06:00] VITALS: BP 132/68
--- NOTE | 2017-10-16 07:30 | Patient Discharge Instructions ---
Discharge Instructions General Discharge Information You were seen/treated for: Episode of shortness of breath secondary to clot in the upper lung treated by blood thinners Special Instructions: Please follow-up with your PCP within a week of discharge. Please follow-up with your dust control engineer within a week of discharge to change the dose of blood thinner as advised. You may need outpatient stress testing to evaluate an overall burden of ischemia. Avoid NSAIDs -ibuprofen , motrin, Aleve, Naproxen.They will increase chances of bleeding. Diet Recommended Diet: Heart Healthy Acute Coronary Syndrome Inclusion Criteria At DC or during hospital stay patient has or had the following: ACS DIAGNOSIS No Discharge Core Measures Meds if any: Prescribed or Continued at Discharge Meds if any: NOT Prescribed or Continued at Discharge Congestive Heart Failure Inclusion Criteria At DC or during hospital stay patient has or had the following: CHF DIAGNOSIS No Discharge Core Measures Meds if any: Prescribed or Continued at Discharge Meds if any: NOT Prescribed or Continued at Discharge Cerebrovascular accident Inclusion Criteria At DC or during hospital stay patient has or had the following: CVA/TIA Diagnosis No Discharge Core Measures Meds if any: Prescribed or Continued at Discharge Meds if any: NOT Prescribed or Continued at Discharge Venous thromboembolism Inclusion Criteria VTE Diagnosis No VTE Type NONE VTE Confirmed by (Test) NONE Discharge Core Measures - Per Current guidelines, there needs to be overlap - treatment for the first 5 days of Warfarin therapy. - If discharged on Warfarin prior to 5 days of - overlap therapy, the patient will need to be - assessed for post discharge needs including - *Post discharge parental anticoagulation - *Warfarin and/or parental anticoagulation education - *Follow up date to check INR post discharge At least 5 days overlap therapy as Inpatient No Meds if any: Prescribed or Continued at Discharge Note: Overlap Therapy is Warfarin and Anticoagulant Meds if any: NOT Prescribed or Continued at Discharge
--- NOTE | 2017-10-16 07:56 | PN- Housestaff ---
See Addendum Subjective Follow-up For: Bilateral PE Subjective: No complaints or acute events overnight Review of Systems Constitutional: Reports: see HPI. Objective Last 24 Hrs of Vital Signs/I&O Vital Signs Date Time Temp Pulse Resp B/P B/P Pulse O2 O2 Flow FiO2 Mean Ox Delivery Rate 10/16 1003 83 124/64 / 1003 83 124/64 / 0958 83 124/64 / 0800 Nasal 2.0L Cannula 10/16 599 97.6 70 20 132/68 92 / 2200 98.0 77 18 126/62 94 Nasal 2.0L Cannula 10/15 2133 94 Nasal 2.0L Cannula 10/16 2123 71 126/62 10/15 212 71 126/62 10/15 1559 73 96/50 /05 1438 97.3 73 22 96/50 97 Nasal Cannula Intake & Output 10/16 1600 10/16 0800 10/16 0000 Intake Total 286.25 Output Total Balance 286.25 Intake, IV 46.25 Intake, Oral 240 Patient 212 lb Weight Weight Bed scale Measurement Method Physical Exam General Appearance: Alert, Oriented X3, Cooperative, on 2LNC Cardiovascular: Regular Rate, Normal S1, Normal S2, No Murmurs Lungs: Clear to Auscultation, Normal Air Movement, Barrel chest Abdomen: Large abdominal girth Extremities: No Edema Current Medications: Current Medications Sig/Alfa Start time Last Medication Dose Route Stop Time Status Admin Apixaban 10 MG BID 10/15 2200 DC PO Apixaban 10 MG Q12H / 1700 AC / PO 0619 Aspirin Buffered 81 MG DAILY 10/14 1609 AC / PO 1003 Ezetimibe 10 MG 2200 10/15 2200 AC 03/05 PO 2124 Heparin Sodium 25,000 UNIT Q24H / 1645 DC (Porcine) IV / 2159 Sodium Chloride 500 ML Heparin Sodium 25,000 UNIT Q24H / 1500 DC 10/14 (Porcine) IV / 1459 1512 Sodium Chloride 500 ML Lisinopril 10 MG DAILY / 1609 AC 03/ PO 1003 Metoprolol Tartrate 6.25 MG BID / 1424 AC 03/ PO 1003 Patient Medication 1 ED ONE ONE 10/15 1430 DC Teaching ED 10/15 1431 Polyethylene Glycol 17 GM DAILY 10/14 1609 AC PO Tamsulosin HCl 0.4 MG AT BEDTIME 10/14 2200 AC 10/15 PO 2124 Last 24 Hrs of Lab/Shawn Results Last 24 Hrs of Labs/Mics: Laboratory Tests 10/15/17 2140: APTT Cancelled 10/15/17 1315: APTT > 120 *H Assessment/Plan Assessment: Mr. Vick is a 87 yo m with a PMH hypertension, HLD, TIA, anxiety who presents to the ED with progressively worsened shortness of breath Acute pulmonary emboli CTA showed diffuse bilateral pulmonary emboli. D-dimer 886. Troponin is mildly elevated 0.13. It is unclear why he developed VTE. His PESI -Class IV, High Risk: 4.0-11.4% with a 30-day mortality. His recent colonoscopy was benign, no smoking history, no recent surgeries, no immobility. * Continue Apixaban 10 mg BID for 7 days then 5 mg thereafter * Continue low dose Metoprolol BID * Cardiology recommendations appreciated * Serial troponins and ECG to r/o ACS negative * ECHO normal left ventricular systolic function with moderate concentric hypertrophy, EF 60-65% * TSH/free T4 nl * lipid panel nl * CT ABD/Pel no evidence of malignancy * Continue home medications: ASA, Ezetimibe, lisinopril, tamsulosin * PT reported patient desatted to 86% on RA * Patient will require oxygen supplementation upon discharge Elevated troponins 2/2 Type II myocardial infarction DVT prophylaxis: IV heparin Problem List: 1. Elevated troponin 2. Bilateral pulmonary embolism Pain Ratin Pain Location: NA Pain Goal: Remain pain free Pain Plan: NA Tomorrow's Labs & Rationales: None
[2017-10-16] MEDS ORDERED: METOPROLOL TART25 M1 PO (07:58)
[2017-10-16] MEDS ORDERED: ELIQUIS5 M1 PO (08:03)
[2017-10-16 09:58] VITALS: BP 124/64
[2017-10-16 10:03] VITALS: BP 124/64
--- NOTE | 2017-10-16 10:57 | PN- Cardiology ---
Subjective Subjective: The patient is awake, alert The events of the last 24 hours as well as telemetry were reviewed. Review of Systems: The review of systems is negative for chest pains, palpitations nor lightheadedness. The remainder of the 14 point review of systems is noncontributory with the exception of above. Objective Vital Signs and I&Os Vital Signs Date Time Temp Pulse Resp B/P B/P Pulse O2 O2 Flow FiO2 Mean Ox Delivery Rate 10/16 1003 83 124/64 10/16 1003 83 124/64 10/16 0958 83 124/64 10/16 0800 Nasal 2.0L Cannula 10/16 599 97.6 70 20 132/68 92 10/15 2200 98.0 77 18 126/62 94 Nasal 2.0L Cannula 10/15 2133 94 Nasal 2.0L Cannula 10/16 2123 71 126/62 10/15 212 71 126/62 10/15 1559 73 96/50 /05 1438 97.3 73 22 96/50 97 Nasal Cannula Intake & Output 10/16 1600 10/16 0810/16 0000 10/15 1600 10/15 0800 10/15 0000 Intake Total 286.25 798.4 130 Output Total Balance 286.25 798.4 130 Intake, IV 46.25 198.4 130 Intake, Oral 240 600 Number 1 1 Bowel Movements Patient 212 lb 211 lb Weight Weight Bed scale Bed scale Measurement Method Physical Exam: General: Nontoxic, no apparent distress. HEENT: Sclera and conjunctiva within normal limits, without xanthelasmas. Neck: Carotids 2+ without bruits. Respiratory: Clear to auscultation, air movement is good, without accessory respiratory muscle use. Heart: Regular rate and rhythm, without murmurs, without JVD. Abdomen: Soft, nontender, no masses, normoactive bowel sounds. Extremities: Without clubbing, cyanosis, without edema. Neuro: Nonfocal exam, strength, 5 out of 5 Skin: Within normal limits without lesions. Psych: Mood and affect: Normal Current Medications: Current Medications Sig/Alfa Start time Last Medication Dose Route Stop Time Status Admin Apixaban 10 MG BID 10/15 2199 DC PO Apixaban 10 MG Q12H 10/15 1700 AC 10/16 PO 0619 Aspirin Buffered 81 MG DAILY 10/14 1609 AC 10/16 PO 1003 Ezetimibe 10 MG 2200 10/15 2199 AC 10/15 PO 2124 Heparin Sodium 25,000 UNIT Q24H 10/15 1645 DC (Porcine) IV 10/15 215 Sodium Chloride 500 ML Heparin Sodium 25,000 UNIT Q24H 10/14 1500 DC 10/14 (Porcine) IV 10/15 1459 1512 Sodium Chloride 500 ML Lisinopril 10 MG DAILY 10/14 1609 AC 10/16 PO 1003 Metoprolol Tartrate 6.25 MG BID 10/15 1424 AC 10/16 PO 1003 Patient Medication 1 ED ONE ONE 10/15 1430 DC Teaching ED 10/15 1431 Polyethylene Glycol 17 GM DAILY 10/14 160 AC PO Tamsulosin HCl 0.4 MG AT BEDTIME 10/14 2199 AC 10/15 PO 2123 Results Last 48 Hrs of Labs/Mics: Laboratory Tests 10/15/17 2140: APTT Cancelled 10/15/17 1315: APTT > 120 *H 10/15/17 0811: Triglycerides 133, Cholesterol 154, LDL Cholesterol, Calc 88, HDL Cholesterol 40 , Cholesterol/HDL Ratio 4, TSH 1.910, Free T4 1.75 10/15/17 0430: APTT 59 H 10/14/17 2050: Troponin I 0.45 *H, APTT > 120 *H 10/14/17 1635: Troponin I 0.46 *H 10/14/17 1442: Lactic Acid Cancelled 10/14/17 1215: Anion Gap 11, Estimated GFR > 60, BUN/Creatinine Ratio 20.0, Glucose 85, Lactic Acid 1.5, Calcium 9.7, Total Bilirubin 0.6, AST 19, ALT 24, Alkaline Phosphatase 69, Troponin I 0.13 *H, Gcn-C-Mgmbucimhsm Pept 277 H, Total Protein 6.8, Albumin 4.0, Globulin 2.8, Albumin/Globulin Ratio 1.4, PT 12.5, INR 1.15, APTT 36, D-Dimer High Sensitivty 886 H, CBC w Diff NO MAN DIFF REQ, RBC 4.83, MCV 89.9, MCH 29.7, MCHC 33.1, RDW 14.2, MPV 8.0, Gran % 70.3, Lymphocytes % 18.3 L , Monocytes % 8.3, Eosinophils % 2.7, Basophils % 0.4, Absolute Granulocytes 6.7 H, Absolute Lymphocytes 1.7, Absolute Monocytes 0.8 H, Absolute Eosinophils 0.3, Absolute Basophils 0 Assessment/Plan Assessment/Plan 87-year-old gentleman with a past medical history of attention, hyperlipidemia as well as a TIA with vascular disease and status post left carotid endarterectomy. He presented to our emergency room with symptoms of increasing dyspnea. He was subsequently found to have bilateral pulmonary emboli, as well as elevated troponin isoenzymes. Bilateral pulmonary emboli: The patient has been anticoagulated. At this time, I would initiate treatment with a direct oral anticoagulant (patient does not wish warfarin). A further workup of the source as well as a hypercoagulable state will continue. Elevated troponin isoenzyme: Most likely secondary to his acute pulmonary embolism. An echocardiogram will be obtained to evaluate RV function as well as LV function. Obtain an overall conservative approach to management. Consideration for outpatient stress testing to evaluate an overall burden of ischemia will be given. The patient has known peripheral vascular disease and is therefore at a cardiac risk equivalence. Aspirin should be maintained. A statin regimen should as well be initiated as well as a beta deshaun. Continue telemetry? No
== END 2017-10-16 13:23 | DRG 175 ==
LOC: ERH 11:20 → 1NO 14:58 → ERHI 14:58 → ENRESERV 15:28 → ENTRNSPT 16:25 → EDTRNSPT 16:28 → EDTRNSPTSTS 16:28 → 1NO 16:50 → CMPTRNSPT 16:55 → 1NO 17:08 → ENPENDDIS 10-16 09:48 → 1NO 10-16 13:23
PROVIDERS: Internal Medicine; Internal Medicine Adolescent Medicine; Physician Assistant
DX: I26.99 Other pulmonary embolism without acute cor pulmonale (principal); I21.A1 Myocardial infarction type 2; I73.9 Peripheral vascular disease, unspecified; I10 Essential (primary) hypertension; Z86.73 Personal history of transient ischemic attack (TIA), and cerebral infarction without residual deficits; E78.5 Hyperlipidemia, unspecified; F41.9 Anxiety disorder, unspecified; M48.00 Spinal stenosis, site unspecified
CPT/HCPCS: 1NSP; 36415; 36592; 71045; 74176; 93005; 93010; 93306; 96374; 97110-GO; 97116-GO; 97161-GP; 97165-GO; 99291; J1644; J3490